=== PATIENT | male | born 1960 | race African-American/Black ===

== ENCOUNTER 2021-04-02 00:07 | Inpatient (IN) | payer MEDICAID ==
[~2021-04-02] VITALS: Ht 175.3 cm; Wt 70.5 kg
[2021-04-02] MEDS ORDERED: METHYLPREDNISOLONE SOD SUCC 125 MG/2 ML VIAL IV STA (00:33)
[2021-04-02] MEDS ORDERED: IPRATROPIUM BROMIDE (0.02%) 0.5MG/2.5ML NEB HHN STA (00:33)
[2021-04-02] MEDS ORDERED: ALBUTEROL (0.083%) 2.5MG/3ML NEB HHN STA (00:33)
[2021-04-02 00:57] LABS: BASOPHILS % 0.7 % (0.0-2.0); EOSINOPHILS % 5.3 % (0.0-5.0); HEMOGLOBIN. 13.2 g/dL (14.0-18.0); LYMPHOCYTES % 36.4 % (20.0-50.0); MEAN CORPUSCULAR HEMOGLOBIN 28.5 pg (28.0-32.0); MEAN CORPUSCULAR VOLUME 86.7 fL (80.0-94.0); MEAN PLATELET VOLUME 7.3 fl (7.4-10.4); MONOCYTES % 14.5 % (2.0-8.0); NEUTROPHILS % 43.1 % (40.0-76.0); PLATELET 238 x1000/uL (130-400); RED BLOOD CELL COUNT 4.62 mill/uL (4.7-6.1); RED CELL DISTRIBUTION WIDTH 14.2 % (11.6-14.6)
[2021-04-02 01:03] LABS: CHLORIDE 108 mEq/L (98-107)
[2021-04-02] MEDS ORDERED: FUROSEMIDE 40MG/4ML VIAL IVP ONE (01:30)
[2021-04-02] MEDS ORDERED: ASPIRIN 325MG TABLET PO ONE (01:30)
[2021-04-02] MEDS: CLONIDINE 0.1MG TABLET PO PRN ×2 (09:10→13:28)
[2021-04-02] MEDS ORDERED: IPRATROPIUM/ALBUTEROL 0.5-3(2.5)MG/3ML NEB HHN PRN (11:30)
[2021-04-02 12:00] VITALS: BP 179/121
[2021-04-02 13:00] VITALS: BP 179/121
[2021-04-02] MEDS: POTASSIUM CHLORIDE 20MEQ TABLET SR PO SCH (13:00)
[2021-04-02] MEDS: AMLODIPINE 10MG TABLET PO SCH (13:01)
[2021-04-02] MEDS ORDERED: HYDRALAZINE HCL 100MG TABLET PO SCH (14:00)
[2021-04-02] MEDS ORDERED: ONDANSETRON HCL 4MG/2ML INJ IV PRN (14:15)
[2021-04-02] MEDS ORDERED: DOCUSATE SODIUM 100MG CAPSULE PO PRN (14:15)
[2021-04-02] MEDS ORDERED: ACETAMINOPHEN 325MG TABLET PO PRN ×2 (14:15)
[2021-04-02] MEDS ORDERED: LORAZEPAM 0.5MG TABLET PO PRN (14:15)
[2021-04-02] MEDS ORDERED: BENZONATATE 100MG CAPSULE PO PRN (14:30)
[2021-04-02] MEDS ORDERED: PNEUMOCOCCAL 23-VAL P-SAC VAC 0.5 ML IM ONE (15:00)
[2021-04-02] MEDS ORDERED: INFLUENZA VACCINE 05/PF 0.5 ML SYRINGE IM ONE (15:00)
[2021-04-02] MEDS: HYDROCODONE/ACETAMINOPHEN 5/325MG TABLET PO PRN (15:12)
[2021-04-02] MEDS ORDERED: AMLODIPINE 5MG TABLET PO NR (15:15)
[2021-04-02] MEDS ORDERED: POTASSIUM CHLORIDE 20MEQ TABLET SR PO NR (15:15)
[2021-04-02] MEDS ORDERED: GUAIFENESIN 200MG TABLET PO PRN (15:30)
[2021-04-02] MEDS: LOSARTAN POTASSIUM 25 MG TABLET PO SCH ×2 (15:41→20:27)
[2021-04-02 16:00] VITALS: BP 150/104
[2021-04-02] MEDS ORDERED: DEXTROSE 50% WATER 50ML SYRINGE IV PRN ×2 (17:15)
[2021-04-02] MEDS: FUROSEMIDE 40MG/4ML VIAL IVP SCH (17:57)
[2021-04-02 20:00] VITALS: BP 156/99
[2021-04-02] MEDS: HYDRALAZINE HCL 25MG TABLET PO SCH (20:27)
[2021-04-02] MEDS: INSULIN LISPRO 100 UNITS/ML SUBCUT SCH (20:28)
[2021-04-02] MEDS: BLOOD SUGAR DIAGNOSTIC STRIP TEST SCH (20:28)
[2021-04-02] MEDS ORDERED: BLOOD SUGAR DIAGNOSTIC STRIP TEST SCH (21:00)
[2021-04-03] VITALS: BP 149/110
[2021-04-03] MEDS: CLONIDINE 0.1MG TABLET PO PRN (00:36)
[2021-04-03 01:21] LABS: *AMPHETAMINES SCREEN URINE NEGATIVE (NEGATIVE); *BARBITURATES SCREEN URINE NEGATIVE (NEGATIVE); *BENZODIAZEPINES SCREEN URINE NEGATIVE (NEGATIVE); *COCAINE SCREEN URINE NEGATIVE (NEGATIVE); CANNABINOID URINE SCREEN NEGATIVE (NEGATIVE); METHADONE URINE SCREEN NEGATIVE (NEGATIVE); OPIATES URINE SCREEN NEGATIVE (NEGATIVE); PHENCYCLIDINE URINE SCREEN NEGATIVE (NEGATIVE)
[2021-04-03 04:00] VITALS: BP 136/96
[2021-04-03] MEDS: HYDRALAZINE HCL 25MG TABLET PO SCH ×3 (05:18→22:41)
[2021-04-03] MEDS: BLOOD SUGAR DIAGNOSTIC STRIP TEST SCH ×4 (05:31→21:00)
[2021-04-03] MEDS: INSULIN LISPRO 100 UNITS/ML SUBCUT SCH ×4 (05:31→21:00)
[2021-04-03 07:00] LABS: BASOPHILS % 0.3 % (0.0-2.0); EOSINOPHILS % 1.3 % (0.0-5.0); HEMATOCRIT. 44.2 % (42.0-52.0); HEMOGLOBIN. 14.6 g/dL (14.0-18.0); LYMPHOCYTES % 26.5 % (20.0-50.0); MEAN CORPUSCULAR HEMOGLOBIN 28.4 pg (28.0-32.0); MEAN CORPUSCULAR VOLUME 85.9 fL (80.0-94.0); MEAN PLATELET VOLUME 8.2 fl (7.4-10.4); MONOCYTES % 12.7 % (2.0-8.0); NEUTROPHILS % 59.2 % (40.0-76.0); PLATELET 326 x1000/uL (130-400); RED BLOOD CELL COUNT 5.14 mill/uL (4.7-6.1); RED CELL DISTRIBUTION WIDTH 14.4 % (11.6-14.6)
[2021-04-03 07:09] LABS: CHLORIDE 102 mEq/L (98-107)
[2021-04-03 07:24] LABS: CREATINE KINASE 132 IU/L (39-308)
[2021-04-03 07:28] LABS: CREATINE KINASE MB FRACTION 3.3 ng/mL (0.5-3.6)
[2021-04-03 08:00] VITALS: BP 163/91
[2021-04-03] MEDS: FUROSEMIDE 40MG/4ML VIAL IVP SCH ×2 (08:49→16:38)
[2021-04-03] MEDS: POTASSIUM CHLORIDE 20MEQ TABLET SR PO SCH (08:50)
[2021-04-03] MEDS: AMLODIPINE 10MG TABLET PO SCH (08:50)
[2021-04-03] MEDS: LOSARTAN POTASSIUM 25 MG TABLET PO SCH ×2 (08:50→16:38)
[2021-04-03 12:00] VITALS: BP 131/89
[2021-04-03] MEDS ORDERED: METF-874 MT (12:46)
[2021-04-03] MEDS ORDERED: BUPR150T3 PO (12:46)
[2021-04-03] MEDS ORDERED: GLIP10TA10 PO (12:46)
[2021-04-03] MEDS ORDERED: ABIL10 PO (12:50)
[2021-04-03] MEDS: HYDROCODONE/ACETAMINOPHEN 5/325MG TABLET PO PRN ×2 (14:11→22:42)
[2021-04-03 16:00] VITALS: BP 142/97
[2021-04-03] MEDS ORDERED: REGADENOSON 0.4 MG/5 ML IV NR (17:30)
[2021-04-03 20:00] VITALS: BP 144/99
[2021-04-04] VITALS: BP 122/92
[2021-04-04 04:00] VITALS: BP 152/98
[2021-04-04] MEDS: HYDRALAZINE HCL 25MG TABLET PO SCH ×3 (06:00→21:10)
[2021-04-04 06:29] LABS: BASOPHILS % 0.2 % (0.0-2.0); EOSINOPHILS % 2.7 % (0.0-5.0); HEMATOCRIT. 46.1 % (42.0-52.0); HEMOGLOBIN. 15.1 g/dL (14.0-18.0); LYMPHOCYTES % 25.8 % (20.0-50.0); MEAN CORPUSCULAR HEMOGLOBIN 28.5 pg (28.0-32.0); MONOCYTES % 11.6 % (2.0-8.0); NEUTROPHILS % 59.7 % (40.0-76.0); PLATELET 323 x1000/uL (130-400); RED CELL DISTRIBUTION WIDTH 14.2 % (11.6-14.6)
[2021-04-04] MEDS: INSULIN LISPRO 100 UNITS/ML SUBCUT SCH ×4 (06:37→21:11)
[2021-04-04 06:41] LABS: CHLORIDE 100 mEq/L (98-107)
[2021-04-04] MEDS: BLOOD SUGAR DIAGNOSTIC STRIP TEST SCH ×4 (06:53→21:00)
[2021-04-04 08:00] VITALS: BP 129/58
[2021-04-04] MEDS: LOSARTAN POTASSIUM 25 MG TABLET PO SCH ×2 (09:00→17:45)
[2021-04-04] MEDS: AMLODIPINE 10MG TABLET PO SCH (09:00)
[2021-04-04] MEDS ORDERED: REGADENOSON 0.4 MG/5 ML IV ONE (10:24)
[2021-04-04 12:00] VITALS: BP 130/98
[2021-04-04] MEDS: POTASSIUM CHLORIDE 20MEQ TABLET SR PO SCH (13:41)
[2021-04-04] MEDS ORDERED: NALOXONE HCL 0.4MG/ML VIAL IV PRN (14:00)
[2021-04-04 16:00] VITALS: BP 135/86
[2021-04-04] MEDS: AMLODIPINE 5MG TABLET PO SCH (17:46)
[2021-04-04 20:00] VITALS: BP 142/97
[2021-04-04] MEDS: CARVEDILOL 3.125 MG TABLET PO SCH (21:10)
[2021-04-04] MEDS: HYDROCODONE/ACETAMINOPHEN 5/325MG TABLET PO PRN (21:11)
[2021-04-05] VITALS: BP 120/74
[2021-04-05 04:00] VITALS: BP 126/79
[2021-04-05] MEDS: HYDROCODONE/ACETAMINOPHEN 5/325MG TABLET PO PRN ×2 (05:02→21:14)
[2021-04-05] MEDS: BLOOD SUGAR DIAGNOSTIC STRIP TEST SCH ×4 (06:11→21:00)
[2021-04-05] MEDS: HYDRALAZINE HCL 25MG TABLET PO SCH ×3 (06:18→21:31)
[2021-04-05] MEDS: INSULIN LISPRO 100 UNITS/ML SUBCUT SCH ×4 (06:20→21:00)
[2021-04-05 07:45] LABS: HEMATOCRIT. 44.4 % (42.0-52.0); HEMOGLOBIN. 14.9 g/dL (14.0-18.0); MEAN CORPUSCULAR VOLUME 86.7 fL (80.0-94.0); PLATELET 329 x1000/uL (130-400); RED BLOOD CELL COUNT 5.12 mill/uL (4.7-6.1); RED CELL DISTRIBUTION WIDTH 14.2 % (11.6-14.6)
[2021-04-05 08:15] VITALS: BP 122/68
[2021-04-05] MEDS: LOSARTAN POTASSIUM 25 MG TABLET PO SCH ×2 (09:05→18:24)
[2021-04-05 09:06] LABS: CHLORIDE 99 mEq/L (98-107)
[2021-04-05] MEDS: AMLODIPINE 5MG TABLET PO SCH ×2 (09:06→20:55)
[2021-04-05] MEDS: CARVEDILOL 3.125 MG TABLET PO SCH ×2 (09:06→20:54)
[2021-04-05] MEDS ORDERED: FUROSEMIDE 40MG TABLET PO SCH (10:45)
[2021-04-05 12:00] VITALS: BP 121/72
[2021-04-05 16:00] VITALS: BP 131/95
[2021-04-05 20:00] VITALS: BP 106/72
[2021-04-05 20:19] LABS: PLATELET ESTIMATE NORMAL
[2021-04-06] VITALS: BP 130/85
[2021-04-06 04:00] VITALS: BP 140/99
[2021-04-06] MEDS: HYDROCODONE/ACETAMINOPHEN 5/325MG TABLET PO PRN (06:16)
[2021-04-06] MEDS: HYDRALAZINE HCL 25MG TABLET PO SCH ×2 (06:17→14:00)
[2021-04-06] MEDS: BLOOD SUGAR DIAGNOSTIC STRIP TEST SCH ×2 (06:17→12:02)
[2021-04-06] MEDS: INSULIN LISPRO 100 UNITS/ML SUBCUT SCH ×2 (06:18→12:02)
[2021-04-06 06:19] LABS: HEMATOCRIT. 43.7 % (42.0-52.0); HEMOGLOBIN. 14.8 g/dL (14.0-18.0); MEAN CORPUSCULAR HEMOGLOBIN 29.3 pg (28.0-32.0); MEAN CORPUSCULAR VOLUME 86.9 fL (80.0-94.0); MEAN PLATELET VOLUME 7.8 fl (7.4-10.4); PLATELET 310 x1000/uL (130-400); RED BLOOD CELL COUNT 5.03 mill/uL (4.7-6.1)
[2021-04-06 06:26] LABS: CHLORIDE 101 mEq/L (98-107)
[2021-04-06 07:59] VITALS: BP 131/90
[2021-04-06] MEDS ORDERED: FUROSEMIDE 40MG TABLET PO SCH (09:00)
[2021-04-06] MEDS: LOSARTAN POTASSIUM 25 MG TABLET PO SCH (09:16)
[2021-04-06] MEDS: CARVEDILOL 3.125 MG TABLET PO SCH (09:16)
[2021-04-06] MEDS: AMLODIPINE 5MG TABLET PO SCH (09:16)
[2021-04-06] MEDS ORDERED: ALBU18HF2 IH (10:19)
[2021-04-06] MEDS ORDERED: AMLO5TAB88 PO (10:19)
[2021-04-06] MEDS ORDERED: HYDR-4134 PO (10:19)
[2021-04-06] MEDS ORDERED: LOSA25TA3 PO (10:19)
[2021-04-06] MEDS ORDERED: COR3 PO (10:19)
[2021-04-06] MEDS ORDERED: FURO40TA5 PO (10:20)
[2021-04-06 10:35] VITALS: BP 131/90
[2021-04-06 12:00] VITALS: BP 128/71
[2021-04-06 12:33] LABS: PLATELET ESTIMATE NORMAL
[2021-04-06] MEDS ORDERED: ATORVASTATIN CALCIUM 10MG TABLET PO SCH (21:00)
== END 2021-04-06 14:00 | disposition home or self-care (01) | DRG 194 ==
LOC: ER 00:07 → 7EST 02:43 → ENRESERV 10:06
PROVIDERS: ADMIT Internal Medicine; ATTEND Internal Medicine
DX: I50.23 Acute on chronic systolic (congestive) heart failure (principal); J96.00 Acute respiratory failure, unspecified whether with hypoxia or hypercapnia; J44.1 Chronic obstructive pulmonary disease with (acute) exacerbation; D64.9 Anemia, unspecified; E11.65 Type 2 diabetes mellitus with hyperglycemia; E78.5 Hyperlipidemia, unspecified; E87.5 Hyperkalemia; E87.6 Hypokalemia; I11.0 Hypertensive heart disease with heart failure; F14.10 Cocaine abuse, uncomplicated; R74.01 Elevation of levels of liver transaminase levels; R79.89 Other specified abnormal findings of blood chemistry; Z20.822 Contact with and (suspected) exposure to COVID-19; I25.5 Ischemic cardiomyopathy; Z72.0 Tobacco use; Z79.84 Long term (current) use of oral hypoglycemic drugs; Z79.899 Other long term (current) drug therapy
CPT/HCPCS: 36415; 71045; 78452; 80048; 80053; 80061; 80076; 80305; 82550; 82553; 82962; 83036; 83735; 83880; 84443; 84484; 85025; 85379; 87426; 90686; 90732; 93005; 93017; 93306; 99291; A9500; J1815; J1940; J2785; J2930

== ENCOUNTER 2024-12-18 14:49 | Inpatient (IN) | payer MEDICARE, OTHER ==
[~2024-12-18] VITALS: Ht 177.8 cm; Wt 64.9 kg
[2024-12-18] VITALS (19 sets, daily range): BP systolic 94–128; BP diastolic 59–99; PULSE 71–89; RESP 12–31; TEMP 36.5848–36.6; O2SAT 95–98
[~2024-12-18 14:49] MED LIST: ALBU90AE3 INH; AMLO5TAB88 PO; ASCO500T20 PO; ASPI-1406 PO; ATOR40TA70 PO; BICT1TAB PO; CARV3.1242 PO; EMPA25TA PO; FLUT1DIS3 INH; FURO20TA4 PO; GABA-529 PO; ISOS20TA8 PO; METH-773 PO; NICO-786 TOP; PREG25CA19 PO; SACU1TAB PO; SITA25TA3 PO; SULF1TAB44 PO
[2024-12-18] MEDS: SODIUM CHLORIDE 0.9% 1,000 ML IV ONE (15:50)
[2024-12-18 16:15] LABS: BASOPHILS % 0.4 % (0.0-2.0); EOSINOPHILS % 1.0 % (0.0-5.0); HEMATOCRIT. 39.2 % (42.0-52.0); HEMOGLOBIN. 12.1 g/dL (14.0-18.0); LYMPHOCYTES % 20.9 % (20.0-50.0); MEAN PLATELET VOLUME 7.0 fl (7.4-10.4); MONOCYTES % 12.3 % (2.0-8.0); NEUTROPHILS % 65.4 % (40.0-76.0); PLATELET 523 x1000/uL (130-400); RED BLOOD CELL COUNT 4.58 mill/uL (4.7-6.1); RED CELL DISTRIBUTION WIDTH 18.7 % (11.6-14.6)
[2024-12-18 16:26] LABS: INR 1.0
[2024-12-18 16:32] LABS: ETHANOL BLOOD < 10 mg/dL (<10); TROPONIN I HIGH SENSITIVITY 42 ng/L (3.0-53); UREA NITROGEN BLOOD 37 mg/dL (9-23)
[2024-12-18 16:33] LABS: ASPARTATE AMINOTRANSFERASE 36 IU/L (<34)
[2024-12-18 16:34] LABS: BILIRUBIN DIRECT < 0.1 mg/dL (<=3.0); BILIRUBIN TOTAL 0.2 mg/dL (0.1-1.0); PROTEIN TOTAL 6.7 g/dL (6.0-8.3)
[2024-12-18 16:38] LABS: CREATININE 2.6 mg/dL (0.6-1.3)
[2024-12-18] MEDS: POTASSIUM CHLORIDE 20MEQ/PACKET PO ONE (17:09)
[2024-12-18] MEDS ORDERED: CLONIDINE 0.1MG TABLET PO PRN (17:45)
[2024-12-18] MEDS ORDERED: HYDRALAZINE 20MG/ML VIAL IV PRN (17:45)
[2024-12-18] MEDS ORDERED: IPRATROPIUM/ALBUTEROL 0.5-3(2.5)MG/3ML NEB HHN PRN (17:45)
[2024-12-18] MEDS ORDERED: DOCUSATE SODIUM 100MG CAPSULE PO PRN (17:45)
[2024-12-18] MEDS ORDERED: ACETAMINOPHEN 325MG TABLET PO PRN (17:45)
[2024-12-18] MEDS ORDERED: ONDANSETRON HCL 4MG/2ML INJ IV PRN (17:45)
[2024-12-18] MEDS ORDERED: CARV12.545 MT (18:32)
[2024-12-18] MEDS ORDERED: EMPA25TA PO (18:32)
[2024-12-18] MEDS ORDERED: FLUT15.844 BOTHNSTRLS (18:32)
[2024-12-18] MEDS ORDERED: FURO20TA4 PO (18:32)
[2024-12-18] MEDS ORDERED: SACU1TAB MT (18:32)
[2024-12-18] MEDS ORDERED: SULF-13 PO (18:32)
[2024-12-18] MEDS ORDERED: BICT1TAB PO (18:32)
[2024-12-18] MEDS ORDERED: ASPI-1497 PO (18:32)
[2024-12-18] MEDS: LACTULOSE 20G/30ML UDC PO SCH (18:38)
[2024-12-18] MEDS: DEXT 5%/0.45% NACL 1000ML 1,000 ML IV SCH (18:38)
[2024-12-18] MEDS: KCL 20MEQ/100ML PREMIX 100 ML IV SCH (18:38)
[2024-12-18 20:56] LABS: CLARITY URINE CLOUDY (CLEAR); COLOR URINE YELLOW (YELLOW); GLUCOSE URINE 3+ (NEGATIVE); KETONES URINE NEGATIVE (NEGATIVE); LEUKOCYTE ESTERASE URINE 1+ (NEGATIVE); NITRITE URINE NEGATIVE (NEGATIVE); OCCULT BLOOD URINE 1+ (NEGATIVE); PH URINE 5.5 (4.5-8.0); PROTEIN URINE 2+ (NEGATIVE); SPECIFIC GRAVITY URINE 1.015 (1.005-1.030); UROBILINOGEN URINE 0.2 E.U./dL (0.2-1.0)
[2024-12-18] MEDS ORDERED: NICARDIPINE 100 MG in SODIUM CHLORIDE 0.9% 60 ML IV PRN (21:00)
[2024-12-18 21:12] LABS: *AMPHETAMINES SCREEN URINE NEGATIVE (NEGATIVE); *BARBITURATES SCREEN URINE NEGATIVE (NEGATIVE); *BENZODIAZEPINES SCREEN URINE NEGATIVE (NEGATIVE); *COCAINE SCREEN URINE PRESUMPTIVE POSITIVE (NEGATIVE); BACTERIA URINE 3+; RBC URINE 0-2 /hpf (0-2); SQUAMOUS EPITHELIAL CELL URINE FEW /lpf (RARE/1+)
[2024-12-18 21:13] LABS: CANNABINOID URINE SCREEN PRESUMPTIVE POSITIVE (NEGATIVE); ECSTASY MDMA SCREEN URINE NEGATIVE (NEGATIVE); METHADONE URINE SCREEN NEGATIVE (NEGATIVE); OPIATES URINE SCREEN NEGATIVE (NEGATIVE); PHENCYCLIDINE URINE SCREEN NEGATIVE (NEGATIVE)
[2024-12-19] VITALS (59 sets, daily range): BP systolic 99–149; BP diastolic 68–122; PULSE 76–103; RESP 0–28; TEMP 36.3–36.7; O2SAT 96–100
[2024-12-19] MEDS ORDERED: *PATIENT'S OWN MEDICATION STORAGE XX SCH (01:00)
[2024-12-19 05:52] LABS: BASOPHILS % 0.4 % (0.0-2.0); EOSINOPHILS % 0.4 % (0.0-5.0); HEMATOCRIT. 38.5 % (42.0-52.0); HEMOGLOBIN. 12.0 g/dL (14.0-18.0); LYMPHOCYTES % 17.6 % (20.0-50.0); MEAN PLATELET VOLUME 7.1 fl (7.4-10.4); MONOCYTES % 12.2 % (2.0-8.0); NEUTROPHILS % 69.4 % (40.0-76.0); PLATELET 593 x1000/uL (130-400); RED BLOOD CELL COUNT 4.59 mill/uL (4.7-6.1); RED CELL DISTRIBUTION WIDTH 18.5 % (11.6-14.6)
[2024-12-19 06:06] LABS: INR 1.0
[2024-12-19 06:13] LABS: CREATININE 2.2 mg/dL (0.6-1.3); TRIGLYCERIDE 134 mg/dL (0-150)
[2024-12-19 06:14] LABS: ASPARTATE AMINOTRANSFERASE 32 IU/L (<34); LDL CHOLESTEROL 105 mg/dL (5-100); PROTEIN TOTAL 6.5 g/dL (6.0-8.3)
[2024-12-19 06:15] LABS: BILIRUBIN DIRECT < 0.1 mg/dL (<=3.0); PHOSPHORUS 2.7 mg/dL (2.5-4.9); UREA NITROGEN BLOOD 31 mg/dL (9-23)
[2024-12-19 06:17] LABS: BILIRUBIN TOTAL 0.3 mg/dL (0.1-1.0)
[2024-12-19] MEDS: CEFTRIAXONE 1GM/50ML 50 ML IV SCH (10:00)
[2024-12-19] MEDS: FAMOTIDINE 20MG/2ML VIAL IV SCH (11:27)
[2024-12-20] VITALS: BP 135/91; PULSE 88; RESP 19; TEMP 36.4; O2SAT 97
[2024-12-20 04:00] VITALS: BP 112/74; PULSE 80; RESP 18; TEMP 36.4; O2SAT 100
[2024-12-20 07:52] LABS: BASOPHILS % 0.5 % (0.0-2.0); EOSINOPHILS % 0.4 % (0.0-5.0); HEMATOCRIT. 40.8 % (42.0-52.0); HEMOGLOBIN. 12.4 g/dL (14.0-18.0); LYMPHOCYTES % 12.2 % (20.0-50.0); MEAN PLATELET VOLUME 7.3 fl (7.4-10.4); MONOCYTES % 9.8 % (2.0-8.0); NEUTROPHILS % 77.1 % (40.0-76.0); PLATELET 498 x1000/uL (130-400); RED BLOOD CELL COUNT 4.73 mill/uL (4.7-6.1); RED CELL DISTRIBUTION WIDTH 19.1 % (11.6-14.6)
[2024-12-20 08:00] VITALS: BP 121/79; PULSE 86; RESP 18; TEMP 36.3; O2SAT 99
[2024-12-20 08:19] LABS: UREA NITROGEN BLOOD 17 mg/dL (9-23)
[2024-12-20 09:50] LABS: CREATININE 1.4 mg/dL (0.6-1.3)
[2024-12-20] MEDS: MEROPENEM 1G/100ML 100 ML IV SCH (15:49)
[2024-12-20 16:00] VITALS: BP 147/102; PULSE 86; RESP 16; TEMP 36.4; O2SAT 97
[2024-12-20 20:00] VITALS: BP 130/83; PULSE 84; RESP 18; TEMP 36.6; O2SAT 97
[2024-12-21] VITALS: BP 126/74; PULSE 97; RESP 17; TEMP 36.1; O2SAT 99
[2024-12-21 04:00] VITALS: BP 128/79; PULSE 64; RESP 17; TEMP 36.9; O2SAT 97
[2024-12-21 08:00] VITALS: BP 152/98; PULSE 82; RESP 16; TEMP 36.2; O2SAT 99
[2024-12-21 12:00] VITALS: BP 138/96; PULSE 101; RESP 16; TEMP 36.6; O2SAT 98
[2024-12-21 16:00] VITALS: BP 139/86; PULSE 86; RESP 17; TEMP 36.3; O2SAT 100
[2024-12-21 20:00] VITALS: BP 138/83; PULSE 86; RESP 18; TEMP 36.5; O2SAT 98
[2024-12-22] VITALS: BP 127/79; PULSE 93; RESP 17; TEMP 36.8; O2SAT 98
[2024-12-22 04:00] VITALS: BP 116/75; PULSE 64; RESP 18; TEMP 36.6; O2SAT 98
[2024-12-22 06:40] LABS: CREATININE 1.3 mg/dL (0.6-1.3); UREA NITROGEN BLOOD 22 mg/dL (9-23)
[2024-12-22 06:48] LABS: BASOPHILS % 0.5 % (0.0-2.0); EOSINOPHILS % 0.4 % (0.0-5.0); HEMATOCRIT. 33.9 % (42.0-52.0); HEMOGLOBIN. 10.7 g/dL (14.0-18.0); LYMPHOCYTES % 19.4 % (20.0-50.0); MEAN PLATELET VOLUME 7.2 fl (7.4-10.4); MONOCYTES % 13.4 % (2.0-8.0); NEUTROPHILS % 66.3 % (40.0-76.0); PLATELET 445 x1000/uL (130-400); RED BLOOD CELL COUNT 4.06 mill/uL (4.7-6.1); RED CELL DISTRIBUTION WIDTH 18.8 % (11.6-14.6)
[2024-12-22] MEDS: SODIUM ZIRCONIUM CYCLOSILICATE 10GM/PACKET PO NR (17:58)
[2024-12-22 20:00] VITALS: BP 133/70; PULSE 98; RESP 17; TEMP 36.4; O2SAT 98
[2024-12-23] VITALS: BP 113/89; PULSE 71; RESP 16; TEMP 36.9; O2SAT 100
[2024-12-23 04:00] VITALS: BP 158/82; PULSE 85; RESP 19; TEMP 36.2; O2SAT 99
[2024-12-23 08:00] VITALS: BP 159/100; PULSE 84; RESP 18; TEMP 36.4; O2SAT 97
[2024-12-23] MEDS: HYDRALAZINE 10 MG in SODIUM CHLORIDE 0.9% 49.5 ML IV PRN (09:09)
[2024-12-23 11:31] LABS: BASOPHILS % 0.5 % (0.0-2.0); EOSINOPHILS % 0.8 % (0.0-5.0); HEMATOCRIT. 36.5 % (42.0-52.0); HEMOGLOBIN. 11.4 g/dL (14.0-18.0); LYMPHOCYTES % 21.4 % (20.0-50.0); MEAN PLATELET VOLUME 7.5 fl (7.4-10.4); MONOCYTES % 12.7 % (2.0-8.0); NEUTROPHILS % 64.6 % (40.0-76.0); PLATELET 420 x1000/uL (130-400); RED BLOOD CELL COUNT 4.33 mill/uL (4.7-6.1); RED CELL DISTRIBUTION WIDTH 19.4 % (11.6-14.6)
[2024-12-23 11:43] LABS: CREATININE 1.3 mg/dL (0.6-1.3); UREA NITROGEN BLOOD 20 mg/dL (9-23)
[2024-12-23 12:00] VITALS: BP 127/73; PULSE 86; RESP 16; TEMP 36.2; O2SAT 97
[2024-12-23 16:00] VITALS: BP 110/71; PULSE 100; RESP 16; TEMP 36.1; O2SAT 98
[2024-12-23] MEDS: ACETAMINOPHEN 325MG TABLET PO PRN (19:57)
[2024-12-23 20:00] VITALS: BP 128/79; PULSE 88; RESP 18; TEMP 36.2; O2SAT 97
[2024-12-24] VITALS: BP 132/87; PULSE 90; RESP 19; TEMP 36.4; O2SAT 98
[2024-12-24] MEDS ORDERED: HYDROCODONE/ACETAMINOPHEN 5/325MG TABLET PO PRN (02:00)
[2024-12-24] MEDS: MELATONIN 3MG TABLET PO PRN (02:28)
[2024-12-24 06:46] LABS: CREATININE 1.2 mg/dL (0.6-1.3); UREA NITROGEN BLOOD 12 mg/dL (9-23)
[2024-12-24 08:00] VITALS: BP 152/98; PULSE 80; RESP 18; TEMP 36.4; O2SAT 97
[2024-12-24] MEDS: AMLODIPINE 5MG TABLET PO SCH (09:15)
[2024-12-24] MEDS: CARVEDILOL 12.5MG TABLET PO SCH (09:16)
[2024-12-24] MEDS ORDERED: NALOXONE HCL 0.4MG/ML VIAL IV PRN (10:15)
[2024-12-24 12:00] VITALS: BP 138/83; PULSE 95; RESP 18; TEMP 36.8; O2SAT 97
[2024-12-24] MEDS: SODIUM ZIRCONIUM CYCLOSILICATE 10GM/PACKET PO NR (15:41)
[2024-12-24 16:00] VITALS: BP 145/91; PULSE 89; RESP 18; TEMP 36.9; O2SAT 98
[2024-12-24 20:00] VITALS: BP 157/94; PULSE 88; RESP 20; TEMP 36.9; O2SAT 95
[2024-12-24] MEDS: ATORVASTATIN CALCIUM 40MG TABLET PO SCH (21:02)
[2024-12-25] VITALS: BP 152/89; PULSE 85; RESP 20; TEMP 36.7; O2SAT 97
[2024-12-25 04:00] VITALS: BP 138/85; PULSE 94; RESP 20; TEMP 36.5; O2SAT 96
[2024-12-25 08:00] VITALS: BP 138/83; PULSE 88; RESP 18; TEMP 36.3; O2SAT 100
[2024-12-25 14:42] LABS: BASOPHILS % 0.8 % (0.0-2.0); EOSINOPHILS % 0.7 % (0.0-5.0); HEMATOCRIT. 33.9 % (42.0-52.0); HEMOGLOBIN. 10.5 g/dL (14.0-18.0); LYMPHOCYTES % 34.5 % (20.0-50.0); MEAN PLATELET VOLUME 7.2 fl (7.4-10.4); MONOCYTES % 12.8 % (2.0-8.0); NEUTROPHILS % 51.2 % (40.0-76.0); PLATELET 339 x1000/uL (130-400); RED BLOOD CELL COUNT 4.05 mill/uL (4.7-6.1); RED CELL DISTRIBUTION WIDTH 19.4 % (11.6-14.6)
[2024-12-25 14:58] LABS: CREATININE 1.2 mg/dL (0.6-1.3)
[2024-12-25 14:59] LABS: UREA NITROGEN BLOOD 19 mg/dL (9-23)
[2024-12-25 15:01] LABS: PHOSPHORUS 2.7 mg/dL (2.5-4.9)
[2024-12-25 20:00] VITALS: BP 135/83; PULSE 100; RESP 20; TEMP 36.7; O2SAT 100
[2024-12-26] VITALS: BP 122/68; PULSE 89; RESP 20; TEMP 36.5; O2SAT 100
[2024-12-26 08:00] VITALS: BP 121/71; PULSE 83; RESP 16; TEMP 36.3; O2SAT 100
[2024-12-26] MEDS: FAMOTIDINE 20MG TABLET PO SCH (08:40)
[2024-12-26 12:00] VITALS: BP 133/77; PULSE 78; RESP 18; TEMP 36.4; O2SAT 98
[2024-12-26 16:04] VITALS: BP 133/77; PULSE 82; RESP 18; TEMP 97.9
== END 2024-12-26 19:50 | DRG 64 ==
LOC: ER 14:49 → ENRESERV 16:52 → MICUSO 17:10 → 5WST 12-19 18:21 → 6EST 12-22 07:54
PROVIDERS: ADMIT Internal Medicine; ATTEND Internal Medicine
DX: I62.9 Nontraumatic intracranial hemorrhage, unspecified (principal); G93.41 Metabolic encephalopathy; N17.9 Acute kidney failure, unspecified; E87.0 Hyperosmolality and hypernatremia; M62.82 Rhabdomyolysis; Z59.00 Homelessness unspecified; J44.1 Chronic obstructive pulmonary disease with (acute) exacerbation; N39.0 Urinary tract infection, site not specified; I13.0 Hypertensive heart and chronic kidney disease with heart failure and stage 1 through stage 4 chronic kidney disease, or unspecified chronic kidney disease; E72.20 Disorder of urea cycle metabolism, unspecified; I50.32 Chronic diastolic (congestive) heart failure; R53.1 Weakness; E87.6 Hypokalemia; R47.1 Dysarthria and anarthria; N18.9 Chronic kidney disease, unspecified; F19.10 Other psychoactive substance abuse, uncomplicated; E11.22 Type 2 diabetes mellitus with diabetic chronic kidney disease; B96.20 Unspecified Escherichia coli [E. coli] as the cause of diseases classified elsewhere; D64.9 Anemia, unspecified; E78.00 Pure hypercholesterolemia, unspecified; H66.42 Suppurative otitis media, unspecified, left ear; F17.200 Nicotine dependence, unspecified, uncomplicated; F14.90 Cocaine use, unspecified, uncomplicated; Z55.6 Problems related to health literacy; Z95.1 Presence of aortocoronary bypass graft
CPT/HCPCS: 36415; 71045; 76770; 80048; 80061; 80076; 80305; 80307; 80320; 80329; 81003; 82140; 82550; 82962; 83735; 83880; 84100; 84484; 85025; 86850; 86900; 87077; 87186; 92610; 93005; 93970; 97161; 97166; 97535; 99285; A4606; J0360; J0696; J1308; J2185; J3480; J7030; G0480